=== PATIENT | male | born 2005 | race Caucasian/White ===

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

== ENCOUNTER 2023-07-13 03:49 | Emergency (ER) | payer BC, MEDICAID, SELFPAY ==
[2023-07-13 03:53] VITALS: BP 138/71; PULSE 103; RESP 16; TEMP 37.6; O2SAT 96; BMI 21.9
--- NOTE | 2023-07-13 04:03 | XRR_ITS ---
PROCEDURE INFORMATION: Exam: XR Chest Exam date and time: 07/13/2023 4:13 AM Age: 17 years old Clinical indication: Fever TECHNIQUE: Imaging protocol: Radiologic exam of the chest. Views: 1 view. COMPARISON: No relevant prior studies available. FINDINGS: Lungs: Unremarkable. No consolidation. Pleural spaces: Unremarkable. No pleural effusion. No pneumothorax. Heart/Mediastinum: Unremarkable. No cardiomegaly. Bones/joints: Unremarkable. XR/XR chest 1V portable [id number] IMPRESSION: No acute findings.
--- NOTE | 2023-07-13 04:05 | W.ED.FEVER ---
HPI - Fever General: Chief Complaint: Fever Stated Complaint: Fever Time Seen by Provider: 07/13/23 03:50 History of Present Illness: Patient presents to the ER with complaints of fever up to 103 this morning. Patient said he took 2 Tylenol approximately 2 hours ago upon arrival his temperature nine 9.7 with a heart rate of 103. Patient says had some mild congestion mild sore throat pain and pain in his low back. Patient denies any urinary symptoms. Patient says he took a COVID and a flu test within the last 2 days they were both negative. Review of Systems General: Reports: 10 or more systems reviewed and unremarkable except in HPI and below PFSH ED PFSH: Medical History Physical therapy evaluation, initial Ankle pain, right Allergic reaction Chronic pain of left knee Clavicle fracture Surgical History History of hand surgery Status post appendectomy Status post tonsillectomy Family History Mother Hypertension Social History Smoking and tobacco/nicotine status: never used tobacco/nicotine Alcohol intake: never Substance/Drug Use: never Physical Exam Const: COMMON NORMALS: no acute distress, average body habitus, patient oriented x3, no limitations, healthy appearing, alert and well nourished HENMT: COMMON NORMALS: normocephalic, atraumatic, hearing grossly normal bilaterally, external ears normal, Normal external nose present, moist oral mucous membranes and oropharynx normal HEAD & SCALP: normocephalic and atraumatic NOSE: Normal external nose present EXTERNAL EAR: Yes external ears normal Eye: COMMON NORMALS: Equal, round and reactive pupils present, EOMs intact bilaterally, conjunctivae normal and no scleral icterus CONJUNCTIVA: Yes conjunctivae normal PUPIL: Yes Equal, round and reactive pupils present Neck/C-Spine: COMMON NORMALS: full ROM, supple, no meningeal signs, no JVD and Thyroid normal; negative for no lymphadenopathy (Mild cervical lymphadenopathy) THYROID: Thyroid normal Chest: COMMONS NORMALS: normal inspection of the chest and normal palpation of entire chest wall Resp: COMMON NORMALS: normal respiratory effort, No retractions, No use of accessory muscles and clear to auscultation bilaterally AUSCULTATION: clear to auscultation bilaterally Cardio: COMMON NORMALS: no JVD, regular rate, regular rhythm, S1 normal heart sound present, S2 normal heart sound present, No gallops present (Cardio), No clicks present (Cardio), No murmurs present (Cardio) and No rub (Cardio) RATE: regular rate RHYTHM: regular rhythm HEART SOUNDS: S1 normal heart sound present and S2 normal heart sound present GI: COMMON NORMALS: Normal to inspection, nondistended, normoactive bowel sounds present, Soft to palpation, non-tender, No hepatosplenomegaly present and no masses PALPATION: Yes Soft to palpation and Yes No hepatosplenomegaly present Neuro: COMMON NORMALS: patient oriented x3 SENSORIUM/ORIENTATION: Yes alert MENINGEAL SIGNS: Yes no meningeal signs Course Vital Signs: Vital signs: Vital Signs Temperature 99.7 F H 07/13/23 04:33 Pulse Rate 81 07/13/23 04:33 Respiratory Rate 16 07/13/23 03:53 Blood Pressure 138/71 07/13/23 03:53 Pulse Oximetry 97 07/13/23 04:33 Oxygen Delivery Me thod Room Air 07/13/23 04:33 MDM - Fever Medical Decision Making Patient presents to the ER with a fever. And low back pain. Patient had a urinalysis which was negative as well as influenza and group A strep all which were negative. Patient be diagnosed with a fever and viral infection. Patient should continue taking Tylenol and Motrin [id number] as directed as needed and follow-up with his PCP in the 7 to 10 days as needed. Differential Diagnosis Unlikely abdominal pain, acute appendicitis, calculus of kidney, constipation, diverticulitis, endometriosis, gastroenteritis, pancreatitis or small bowel obstruction Medical Records I reviewed the patient's medical records. Lab Data I reviewed the patient's lab results. Laboratory Results Urine Color Yellow (Yellow) 07/13/23 04:10 Urine Appearance Sl hazy (CLEAR) A 07/13/23 04:10 Urine pH 6 (5-7) 07/13/23 04:10 Ur Specific [place] 1.020 (1.005-1.030) 07/13/23 04:10 Urine Protein 1+ (Negative) H 07/13/23 04:10 Urine Glucose (UA) Norm (Normal) 07/13/23 04:10 Urine Ketones Negative (Negative) 07/13/23 04:10 Urine Blood Neg (Negative) 07/13/23 04:10 Urine Nitrate Negative (Negative) 07/13/23 04:10 Urine Bilirubin Neg (Negative) 07/13/23 04:10 Urine Urobilinogen 1 mg/dL (Negative) H 07/13/23 04:10 Ur Leukocyte Esterase Negative (Negative) 07/13/23 04:10 Urine RBC None /hpf (0-2) 07/13/23 04:10 Urine WBC 0-4 /hpf (0-5) H 07/13/23 04:10 Ur Squamous Epith Cells None /hpf (0-5) 07/13/23 04:10 Ur Transition Epith Cell 0-4 /hpf 07/13/23 04:10 Amorphous Sediment Not Reportable 07/13/23 04:10 Urine Bacteria Trace /hpf (NONE) 07/13/23 04:10 Urine Mucus 2+ /hpf 07/13/23 04:10 Influenza Type A Ag negative (Negative) 07/13/23 04:41 Influenza Type B Ag negative (Negative) 07/13/23 04:41 Group A Strep Rapid Negative (Negative) 07/13/23 04:10 XR interpretation done by ED provider, pending radiology final review ED provider radiology interpretation(s): My preliminary reports of the chest x-ray was negative for acute infiltrate. Discharge Plan Discharge Patient Disposition: Home Clinical Impression: Viral infection Fever Qualifiers: Fever type: unspecified Qualified Code(s): R50.9 - Fever, unspecified Condition: Stable Prescriptions: No Action ondansetron HCl 8 mg tablet 8 mg PO Q8H PRN (Reason: nausea and vomiting) Qty: 10 0RF Discharge Orders: Discharge ED (Routine); Ordered 07/13/23 Ordered By: Drew Mccall Patient Instructions: Fever - Adult, Viral Syndrome - Adult Activity Restrictions/Additional Instructions: Please continue take Tylenol and ibuprofen as directed as needed for fever and pain control. Please push plenty of fluids. Please follow-up with your family practice physician within next 7 to 10 days for further evaluation and treatment. Coding Level of Care Code ED [employer] Administrator for Crista Barry
[2023-07-13 04:19] LABS: Rapid Strep A Test Negative (Negative)
[2023-07-13 04:23] LABS: Add Urine Microscopic? YES; Bilirubin Urine Neg (Negative); Blood Urine Neg (Negative); Glucose Urine UA Norm (Normal); Ketones Urine Negative (Negative); Leukocyte Esterase Urine Negative (Negative); Nitrate Urine Negative (Negative); Protein Urine 1+ (Negative); Urine Appearance SL Hazy (CLEAR); Urine Color Yellow (Yellow); Urobilinogen Urine 1 mg/dL (Negative); pH Urine 6 (5-7)
[2023-07-13 04:24] LABS: Add Urine Culture? No; Bacteria Urine TRACE /hpf; Mucus Urine 2+ /hpf; Transitional Epi Cells Urine 0-4 /hpf; WBC Urine 0-4 /hpf (0-5)
[2023-07-13 04:33] VITALS: PULSE 81; TEMP 37.6; O2SAT 97
[2023-07-13 04:59] LABS: Influenza A by IFA negative (Negative); Influenza B by IFA negative (Negative)
[2023-07-13 05:43] VITALS: BP 122/68; PULSE 85; RESP 17; O2SAT 99
== END 2023-07-13 05:45 | disposition home or self-care (01) ==
PROVIDERS: Emergency Provider Emergency Medicine
DX: B34.9 Viral infection, unspecified (principal)
CPT/HCPCS: 71045; 81001; 87081; 87804; 87880; 99284

== ENCOUNTER 2024-02-28 07:02 | Emergency (ER) | payer BC, MEDICAID, SELFPAY ==
[2024-02-28 07:16] VITALS: BP 141/72; PULSE 80; RESP 20; TEMP 36.7; O2SAT 99
--- NOTE | 2024-02-28 07:30 | W.ED.HA ---
HPI - Headache General: Chief Complaint: Headache Stated Complaint: headache Time Seen by Provider: 02/28/24 07:25 History of Present Illness: 18-year-old man with no significant past medical history presents emergency room today with headache. He said he said malaise, fevers, some mild cough, some nausea and some diarrhea for the last several days. Today the headache was worse so he came to the emergency room. No altered mental status. No nuchal rigidity. Currently afebrile. He has taken no medications this morning. He is not short of breath. No chest pain. No abdominal pain. Related Data Previous Rx's Medication Instructions Recorded ondansetron HCl 8 mg tablet 8 mg PO Q8H PRN nausea and 11/02/22 vomiting #10 tabs dexamethasone 6 mg tablet 6 mg PO DAILY 5 days #5 tabs 02/28/24 diclofenac sodium 50 mg 50 mg PO BID PRN pain #14 tabs 02/28/24 tablet,delayed release doxycycline monohydrate 100 mg 100 mg PO BID 10 days #20 caps 02/28/24 capsule Allergies Allergy/AdvReac Type Severity Reaction Status Date / Time adhesive tape Allergy Intermediate ALGY-Hives Verified 07/13/23 03:56 Review of Systems Narrative: Constitutional symptoms: Negative except as documented in HPI. Skin symptoms: Negative except as documented in HPI. Eye symptoms: Negative except as documented in HPI. ENMT symptoms: Negative except as documented in HPI. Respiratory symptoms: Negative except as documented in HPI. Cardiovascular symptoms: Negative except as documented in HPI. Gastrointestinal symptoms: Negative except as documented in HPI. Genitourinary symptoms: Negative except as documented in HPI. Musculoskeletal symptoms: Negative except as documented in HPI. Neurologic symptoms: Negative except as documented in HPI. Psychiatric symptoms: Negative except as documented in HPI. Endocrine symptoms: Negative except as documented in HPI. PFSH ED PFSH: Medical History Physical therapy evaluation, initial Ankle pain, right Allergic reaction Chronic pain of left knee Clavicle fracture Surgical History History of hand surgery Status post appendectomy Status post tonsillectomy Family History Mother Hypertension Social History Smoking and tobacco/nicotine status: never used tobacco/nicotine Alcohol intake: never Substance/Drug Use: never Physical Exam Narrative: EXAM NARRATIVE: General: Alert, no acute distress. Skin: Warm, dry. Head: Normocephalic, atraumatic. Neck: Supple, trachea midline. Eye: Extraocular movements are intact. Ears, nose, mouth and throat: mucosa moist. Cardiovascular: Regular, Normal peripheral perfusion. Respiratory: Lungs are clear to auscultation, respirations are non-labored, breath sounds are equal, Symmetrical chest wall expansion. Gastrointestinal: Soft, Nontender, Non distended Musculoskeletal: Normal ROM, no deformity. Neurological: Alert and oriented, No focal neurological deficit observed. Psychiatric: Cooperative, appropriate mood & affect. Course Vital Signs: Vital signs: Vital Signs Temperature 98.1 F 02/28/24 07:16 Pulse Rate 50 L 02/28/24 08:15 Respiratory Rate 20 H 02/28/24 07:16 Blood Pressure 130/78 02/28/24 08:15 Pulse Oximetry 97 02/28/24 08:15 Oxygen Delivery Me thod Room Air 02/28/24 08:15 MDM - Headache Medical Decision Making Lab Review: Laboratory results were reviewed and interpreted by myself the emergency room physician. Patient has mild leukopenia. Platelets are mildly low at 172. BUN/creatinine are 17 and 1.1. COVID PCR is negative I reviewed the patient's medical record. Reexamination: Patient remained stable. No increased work of breathing. No altered mental status. No focal motor deficits. Patient states headache improved some with steroids, Toradol and fluids. He says however whenever he got up the light made it worse. Discussed this could possibly be a migraine secondary to a virus. Assessment and plan: Viral illness Headache Dehydration ?Decadron, Toradol and IV fluids in the emergency room - Discharged home - Discussed plan with patient. Answered any questions. - Evaluation and treatment of this problem were appropriate in the emergency setting. Lab Data 02/28/24 07:28 02/28/24 07:28 Laboratory Results WBC 4.40 10^3/uL (4.5-13.0) L 02/28/24 07:28 RBC 4.80 10^6/uL (3.85-5.65) 02/28/24 07:28 Hgb 15.00 g/dL (13.2-15.6) 02/28/24 07: Hct 43.1 % (37-53) 02/28/24 07: MCV 89.8 fl (82-101) 02/28/24 07: MCH 31.3 pg (27-33) 02/28/24 07: MCHC 34.8 g/dL (30-55) 02/28/24 07: RDW 12.3 % (12.1-15.1) 02/28/24 07: Plt Count 172 10^3/cmm (157-399) 02/28/24 07: MPV 10.7 fL (7.4-10.4) H 02/28/24 07: Neut % (Auto) 60.0 % 02/28/24 07: Lymph % (Auto) 35.0 % 02/28/24 07: [place] % (Auto) 3.9 % 02/28/24 07: Eos % (Auto) 0.9 % 02/28/24 07: Baso % (Auto) 0.2 % 02/28/24 07: Neut # (Auto) 2.64 10^3/uL (1.8-8.0) 02/28/24 07: Lymph # (Auto) 1.5 10^3/uL (1.5-6.5) 02/28/24 07: [place] # (Auto) 0.2 10^3/uL (0.2-0.9) 02/28/24 07: Eos # (Auto) 0.0 10^3/uL (0.0-0.8) 02/28/24 07: Baso # (Auto) 0.0 10^3/uL (0.0-0.1) 02/28/24 07: Nucleated RBC % (auto) 0 % 02/28/24: Nucleated RBCs # 0.0 /100WBC 02/28/24 07: Sodium 139 mmol/L (136-145) 02/28/24 07: Potassium 4.0 mmol/L (3.5-5.1) 02/28/24 07: Chloride 103 mmol/L (98-107) 02/28/24 07:28 Carbon Dioxide 25 mmol/L (22-29) 02/28/24 07:28 Anion Gap 15.0 (5-19) 02/28/24 07:28 BUN 17 mg/dL (6-20) 02/28/24 07:28 Creatinine 1.1 mg/dL (0.7-1.2) 02/28/24 07:28 GFR Calculation 85.3 mL/min (90-130) L 02/28/24 07:28 Glucose 94 mg/dL (65-115) 02/28/24 07:28 Calculated Osmolality 289 mOsm/kg (285-295) 02/28/24 07:28 Calcium 9.1 mg/dL (8.5-10.5) 02/28/24 07:28 Total Bilirubin 0.8 mg/dL (0.15-1.2) 02/28/24 07:28 AST 20 U/L (0-40) 02/28/24 07:28 ALT 16 U/L (0-41) 02/28/24 07:28 Alkaline Phosphatase 61 U/L (40-130) 02/28/24 07:28 C-Reactive Protein 9.7 mg/L (0.0-4.9) H 02/28/24 07:28 Total Protein 7.3 g/dL (6.6-8.7) 02/28/24 07:28 Albumin 4.4 g/dL (3.5-5.2) 02/28/24 07:28 Globulin 2.9 g/dL (1.3-4.6) 02/28/24 07:28 Coronavirus 229E (PCR) Not detected (NOT DETECT) 02/28/24 07:37 SARS-CoV-2 (PCR) Not detected (NOT DETECT) 02/28/24 07:37 No radiology studies performed this visit Discharge Plan Discharge Patient Disposition: Home Clinical Impression: Headache, Viral illness Condition: Stable Prescriptions: New dexamethasone 6 mg tablet 6 mg PO DAILY 5 Days Qty: 5 0RF doxycycline monohydrate 100 mg capsule 100 mg PO BID 10 Days Qty: 20 0RF diclofenac sodium 50 mg tablet,delayed release (DR/EC) 50 mg PO BID PRN (Reason: pain) Qty: 14 0RF No Action ondansetron HCl 8 mg tablet 8 mg PO Q8H PRN (Reason: nausea and vomiting) Qty: 10 0RF Discharge Orders: Discharge ED (Routine); Ordered 02/28/24 Ordered By: Yulissa Sims Discharge Diet: Usual diet Discharge Activity: Increase activity as tolerated Patient Instructions: Viral Syndrome (ED) Activity Restrictions/Additional Instructions: Thank you for choosing [facility] for your healthcare needs today. Please realize this is an emergency room and that we are providing you with a medical screening exam and this may not be complete and all inclusive of all the testing and or work up that you may need to determine your ailment or severity of your illness. You have been screened and evaluated and felt safe for discharge. Health conditions do change or evolve sometimes and as such it is important that you follow up with your Primary Doctor to be re checked, 3-5 days is a general good time frame for follow up. You are always welcome to return to the ED for re assessment if your symptoms are worsening or you have new concerns Coding Level of Care Code ED T[employer] Teacher for Crista Barry
[2024-02-28 07:34] LABS: Basophils % 0.2 %; Eosinophils % 0.9 %; Hematocrit 43.1 % (37-53); Lymphocytes # 1.5 10^3/uL (1.5-6.5); Mean Corpuscular HGB Conc 34.8 g/dL (30-55); Mean Corpuscular Hemoglobin 31.3 pg (27-33); Mean Corpuscular Volume 89.8 fl (82-101); Mean Platelet Volume 10.7 fL (7.4-10.4); Monocytes # 0.2 10^3/uL (0.2-0.9); Monocytes % 3.9 %; Neutrophils # 2.64 10^3/uL (1.8-8.0); Nucleated Red Blood Cells % 0 %; Platelet Count 172 10^3/cmm (157-399); Red Cell Distribution Width 12.3 % (12.1-15.1)
[2024-02-28] MEDS: sodium chloride 0.9% 1,000 ML 999 ML IV (07:35)
[2024-02-28] MEDS: ketorolac 30 mg/mL INJ IVP (07:36)
[2024-02-28 08:05] LABS: Alanine Aminotransferase 16 U/L (0-41); Albumin Level 4.4 g/dL (3.5-5.2); Alkaline Phosphatase 61 U/L (40-130); Aspartate Amino Transferase 20 U/L (0-40); Blood Urea Nitrogen 17 mg/dL (6-20); C Reactive Protein 9.7 mg/L (0.0-4.9); Calcium 9.1 mg/dL (8.5-10.5); Carbon Dioxide 25 mmol/L (22-29); Chloride 103 mmol/L (98-107); Globulin 2.9 g/dL (1.3-4.6); Glomerular Filtration Rate 85.3 mL/min (90-130); Glucose 94 mg/dL (65-115); Osmolality Calculated 289 mOsm/kg (285-295); Sodium 139 mmol/L (136-145); Total Bilirubin 0.8 mg/dL (0.15-1.2); Total Protein 7.3 g/dL (6.6-8.7)
[2024-02-28 08:15] VITALS: BP 130/78; PULSE 50; O2SAT 97
[2024-02-28] MEDS: dexamethasone 10 mg/mL INJ IVP (08:40)
[2024-02-28 09:42] LABS: Adenovirus Not Detected (NOT DETECT); Chlamydia Pneumoniae Not Detected (NOT DETECT); Coronavirus 229E,HKU1,NL63,OC4 Not Detected (NOT DETECT); Human Metapneumovirus Not Detected (NOT DETECT); Human Rhinovirus/Enterovirus Not Detected (NOT DETECT); Influenza A Not Detected (NOT DETECT); Influenza A H1 Not Detected (NOT DETECT); Influenza A H1-2009 Not Detected (NOT DETECT); Influenza A H3 Not Detected (NOT DETECT); Influenza B Not Detected (NOT DETECT); Mycoplasma Pneumoniae Not Detected (NOT DETECT); Parainfluenza Virus Type 1 Not Detected (NOT DETECT); Parainfluenza Virus Type 2 Not Detected (NOT DETECT); Parainfluenza Virus Type 3 Not Detected (NOT DETECT); Parainfluenza Virus Type 4 Not Detected (NOT DETECT); Respiratory Syncytial Virus A Not Detected (NOT DETECT); Respiratory Syncytial Virus B Not Detected (NOT DETECT); SARS-COV-2 Not Detected (NOT DETECT)
[2024-02-28 10:06] VITALS: BP 125/65; PULSE 57; O2SAT 99
== END 2024-02-28 10:12 | disposition home or self-care (01) ==
PROVIDERS: Emergency Provider Emergency Medicine
DX: R51.9 Headache, unspecified (principal); B34.9 Viral infection, unspecified; Z11.52 Encounter for screening for COVID-19
CPT/HCPCS: 80053; 85025; 86140; 87635; 96361; 96374; 96375; 99284; J1100; J1885; J7030